=== PATIENT | male | born 1950 | race Caucasian/White ===

== ENCOUNTER 2020-05-17 20:00 | IRF | payer OTHER, SELFPAY ==
--- NOTE | 2020-05-17 20:00 | ADMGEN ---
This patient, Wu Winters, was admitted to [facility] Room 225-02. Patient/family oriented to hospital policies and general routines including ID bracelet, bed and alarms, visiting hours, pain management, procedures, bathroom and other care routines, personal items, smoking policy, room service/diet, and visiting hours. Information on how to activate the Rapid Response Team has been discussed. Patient/Family are encouraged to report perceived risks to care and to ask questions if they do not understand what they are told or what they should do.
[2020-05-17 22:00] VITALS: BP 144/74; PULSE 77; RESP 18; TEMP 36.3; O2SAT 97
[2020-05-17 22:42] VITALS: BMI 34.3
[2020-05-17 23:42] VITALS: BMI 35.2
[2020-05-18 05:23] VITALS: BP 166/74; PULSE 76; RESP 18; TEMP 36.4; O2SAT 100
[2020-05-18 08:00] VITALS: PULSE 76; RESP 18; O2SAT 100
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
[2020-05-18] MEDS: BACITRACIN OINTMENT 15 GM TUBE 1 APPLIC TOPICAL ×3 (09:48→17:38)
[2020-05-18] MEDS: CHOLECALCIFEROL 1,000 UNITS TABLET 1000 UNITS PO (09:48)
[2020-05-18] MEDS: hydroCHLOROthiazide 25 MG TABLET PO (09:48)
[2020-05-18] MEDS: amLODIPine BESYLATE 5 MG TABLET 10 MG PO (09:48)
[2020-05-18] MEDS: polyethylene glycoL 3350 17 GM POWD.PACK PO (09:49)
[2020-05-18] MEDS: SENNOSIDES 8.6 MG TABLET PO (09:50)
[2020-05-18 13:33] VITALS: BMI 35.2
[2020-05-18] MEDS: CIPROFLOXACIN 500 MG TAB PO ×2 (13:59→23:45)
[2020-05-18] MEDS: ENOXAPARIN 40 MG/0.4 ML SYRINGE SUB-Q (13:59)
[2020-05-18 14:00] VITALS: BP 139/66; PULSE 86; RESP 20; TEMP 36.9; O2SAT 96
[2020-05-18] MEDS: ACETAMINOPHEN 500 MG TABLET 1000 MG PO ×2 (14:01→17:38)
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
[2020-05-18 22:00] VITALS: BP 166/77; PULSE 77; RESP 17; TEMP 36.8; O2SAT 96
[2020-05-19 05:33] LABS: Basophils Percent Auto 0.5 % (0.2-1.2); Eosinophils Absolute Auto 0.4 K/mm3 (0-0.3); Eosinophils Percent Auto 5.6 % (0-4.4); Hematocrit 32.1 % (42.0-52.0); Hemoglobin 10.2 g/dL (14.0-18.0); Immature Granulocyte Absolute 0.06 K/mm3 (0.00-0.031); Immature Granulocyte Percent A 0.8 % (0-0.5); Lymphocytes Absolute Auto 1.88 K/mm3 (0.9-3.2); Lymphocytes Percent Auto 24.7 % (18.3-44.2); Mean Corpuscular HGB Conc 31.8 g/dl (32-36); Mean Corpuscular Hemoglobin 28.4 pg (26-34); Mean Corpuscular Volume 89.4 fl (80-100); Mean Platelet Volume 9.2 fl (7.4-10.4); Monocytes Absolute Auto 0.8 K/mm3 (0.1-0.6); Monocytes Percent Auto 10.1 % (2.6-8.5); Neutrophils Absolute Auto 4.4 K/mm3 (1.3-6.7); Neutrophils Percent Auto 58.3 % (45.5-73.1); Platelet Count Result 327 k/mm3 (150-375); Red Blood Count 3.59 M/mm3 (4.6-6.20); Red Cell Distribution Width 15.9 % (11.5-14.5); White Blood Count 7.6 K/mm3 (4.5-10.0)
[2020-05-19 05:40] LABS: Anion Gap 7 mmol/L (8-16); Blood Urea Nitrogen 22 mg/dL (9-20); Calcium 8.5 mg/dL (8.4-10.2); Carbon Dioxide 29 mmol/L (22-30); Chloride 101 mmol/L (98-107); Estimated CRCL calculation 86 ml/min; Estimated Glomerular Filt Rate > 60; Glucose 100 mg/dL (75-110); Potassium 3.6 mmol/L (3.4-5.0); Sodium 137 mmol/L (137-145)
[2020-05-19 06:00] VITALS: BP 185/91; PULSE 79; RESP 19; TEMP 37; O2SAT 96
[2020-05-19] MEDS: ACETAMINOPHEN 500 MG TABLET 1000 MG PO ×3 (09:01→17:54)
[2020-05-19] MEDS: ENOXAPARIN 40 MG/0.4 ML SYRINGE SUB-Q (09:02)
[2020-05-19] MEDS: hydroCHLOROthiazide 25 MG TABLET PO (09:02)
[2020-05-19] MEDS: CHOLECALCIFEROL 1,000 UNITS TABLET 1000 UNITS PO (09:02)
[2020-05-19] MEDS: BACITRACIN OINTMENT 15 GM TUBE 1 APPLIC TOPICAL ×3 (09:02→17:55)
[2020-05-19] MEDS: amLODIPine BESYLATE 5 MG TABLET 10 MG PO (09:02)
[2020-05-19] MEDS: SENNOSIDES 8.6 MG TABLET PO (09:02)
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
[2020-05-19] MEDS: PHARMACIST COMMUNICATION ORDER 1 EACH XX (12:46)
[2020-05-19 14:00] VITALS: BP 155/71; PULSE 82; RESP 20; TEMP 36.6; O2SAT 98
[2020-05-19 22:00] VITALS: BP 130/65; PULSE 75; RESP 18; TEMP 37.2; O2SAT 96
[2020-05-20 06:00] VITALS: BP 157/80; PULSE 74; RESP 18; TEMP 36.3; O2SAT 97
[2020-05-20] MEDS: ENOXAPARIN 40 MG/0.4 ML SYRINGE SUB-Q (08:44)
[2020-05-20] MEDS: ACETAMINOPHEN 500 MG TABLET 1000 MG PO ×3 (08:44→17:47)
[2020-05-20] MEDS: SENNOSIDES 8.6 MG TABLET PO (08:45)
[2020-05-20] MEDS: BACITRACIN OINTMENT 15 GM TUBE 1 APPLIC TOPICAL ×3 (08:45→17:47)
[2020-05-20] MEDS: hydroCHLOROthiazide 25 MG TABLET PO (08:45)
[2020-05-20] MEDS: CHOLECALCIFEROL 1,000 UNITS TABLET 1000 UNITS PO (08:45)
[2020-05-20] MEDS: amLODIPine BESYLATE 5 MG TABLET 10 MG PO (08:45)
[2020-05-20 14:00] VITALS: BP 147/78; PULSE 84; RESP 18; TEMP 36.6; O2SAT 98
[2020-05-20 20:00] VITALS: PULSE 73; RESP 16; O2SAT 99
[2020-05-20 21:12] VITALS: BP 170/72; PULSE 73; RESP 16; TEMP 36.9; O2SAT 99
[2020-05-21 06:00] VITALS: BP 133/70; PULSE 84; RESP 18; TEMP 36.4; O2SAT 94
[2020-05-21] MEDS: hydroCHLOROthiazide 25 MG TABLET PO (09:30)
[2020-05-21] MEDS: CHOLECALCIFEROL 1,000 UNITS TABLET 1000 UNITS PO (09:30)
[2020-05-21] MEDS: amLODIPine BESYLATE 5 MG TABLET 10 MG PO (09:30)
[2020-05-21] MEDS: BACITRACIN OINTMENT 15 GM TUBE 1 APPLIC TOPICAL ×3 (09:30→17:47)
[2020-05-21] MEDS: SENNOSIDES 8.6 MG TABLET PO (09:31)
[2020-05-21] MEDS: ENOXAPARIN 40 MG/0.4 ML SYRINGE SUB-Q (09:31)
[2020-05-21] MEDS: ACETAMINOPHEN 500 MG TABLET 1000 MG PO ×3 (09:34→17:47)
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
[2020-05-21 14:00] VITALS: BP 127/62; PULSE 78; RESP 20; TEMP 36.6; O2SAT 95
[2020-05-21 20:00] VITALS: PULSE 71; RESP 16; O2SAT 98
[2020-05-21 21:16] VITALS: BP 151/79; PULSE 71; RESP 16; TEMP 36.4; O2SAT 98
[2020-05-21] MEDS: CYCLOBENZAPRINE HCL 10 MG TABLET PO (22:07)
[2020-05-22 06:00] VITALS: BP 136/74; PULSE 78; RESP 18; TEMP 36.7; O2SAT 95
[2020-05-22] MEDS: amLODIPine BESYLATE 5 MG TABLET 10 MG PO (09:00)
[2020-05-22] MEDS: BACITRACIN OINTMENT 15 GM TUBE 1 APPLIC TOPICAL ×3 (09:00→17:44)
[2020-05-22] MEDS: ACETAMINOPHEN 500 MG TABLET 1000 MG PO ×3 (09:00→17:44)
[2020-05-22] MEDS: CHOLECALCIFEROL 1,000 UNITS TABLET 1000 UNITS PO (09:01)
[2020-05-22] MEDS: ENOXAPARIN 40 MG/0.4 ML SYRINGE SUB-Q (09:01)
[2020-05-22] MEDS: SENNOSIDES 8.6 MG TABLET PO (09:01)
[2020-05-22] MEDS: hydroCHLOROthiazide 25 MG TABLET PO (09:01)
--- NOTE | 2020-05-22 12:03 | WPDNEUROPN ---
Progress Note: A&P Assessment and Plan (1) Shoulder dislocation: Code(s): S43.006A - Unspecified dislocation of unspecified shoulder joint, initial encounter Status: Acute (2) Femur fracture: Code(s): S72.90XA - Unspecified fracture of unspecified femur, initial encounter for closed fracture Status: Acute Additional Plan stable Review of Systems Review of Systems: All systems reviewed & are unremarkable except as noted in HPI and below Exam Narrative: Exam Narrative: awake alert has no complaints of the pain or discomfort at times not sleeping very well but generally stable no complaints of the pain heart regular lungs clear neuro unchanged Objective Data Vital Signs Vital Signs: Vital Signs - 24 hr 05/21/20 14:00 05/21/20 20:00 05/21/20 21:16 Temperature 36.6 C 36.4 C L Pulse Rate 78 71 71 Respiratory Rate 20 16 16 Blood Pressure 127/62 151/79 H Pulse Oximetry 95 98 98 05/22/20 06:00 Temperature 36.7 C Pulse Rate 78 Respiratory Rate 18 Blood Pressure 136/74 Pulse Oximetry 95 Intake/Output Intake/Output: Intake & Output 05/19/20 05/20/20 05/21/20 05/22/20 23:59 23:59 23:59 23:59 Intake Total 1320 480 720 240 Balance 1320 480 720 240 Meds/Results Medications: Active Medications Generic Name Dose Route Start Last Admin Trade Name Freq PRN Reason Stop Dose Admin Acetaminophen 1,000 mg 05/18/20 09:00 05/22/20 09:00 Acetaminophen 500 Mg Tablet PO 1,000 mg TID JOHN Administration Amlodipine Besylate 10 mg 05/18/20 09:00 05/22/20 09:00 Amlodipine Besylate 5 Mg Tablet PO 10 mg DAILY JOHN Administration Bacitracin 1 applic 05/18/20 09:00 05/22/20 09:00 Bacitracin Ointment 15 Gm Tube TOPICAL 1 applic TID JOHN Administration Cyclobenzaprine HCl 10 mg 05/18/20 00:32 05/21/20 22:07 Cyclobenzaprine Hcl 10 Mg Tablet PO 10 mg TID PRN Administration Muscle Spasm Enoxaparin Sodium 40 mg 05/18/20 11:40 05/22/20 09:01 Enoxaparin 40 Mg/0.4 Ml Syringe SUB-Q 40 mg DAILY JOHN Administration Hydrochlorothiazide 25 mg 05/18/20 09:00 05/22/20 09:01 Hydrochlorothiazide 25 Mg Tablet PO 25 mg DAILY [facility] Administration Oxycodone HCl 10 mg 05/18/20 00:32 Oxycodone Hcl (*Crx) 5 Mg Tab Ir PO Q6H PRN Pain Rated 7-10 Polyethylene Glycol 17 gm 05/18/20 09:00 05/22/20 09:01 Polyethylene Glycol 3350 17 Gm Powd.Pack PO Not Given DAILY [facility] Senna 8.6 mg 05/18/20 09:00 05/22/20 09:01 Sennosides 8.6 Mg Tablet PO 8.6 mg DAILY [facility] Administration Vitamin D 1,000 units 05/18/20 09:00 05/22/20 09:01 Cholecalciferol 1,000 Units Tablet PO 1,000 units DAILY JOHN Administration
[2020-05-22 14:00] VITALS: BP 138/64; PULSE 79; RESP 20; TEMP 36.8; O2SAT 96
[2020-05-22 20:28] VITALS: BP 126/67; PULSE 66; RESP 18; TEMP 36.3; O2SAT 92
[2020-05-23 05:42] VITALS: BP 118/63; PULSE 67; RESP 20; TEMP 36.4; O2SAT 96
[2020-05-23] MEDS: ACETAMINOPHEN 500 MG TABLET 1000 MG PO ×3 (09:32→21:20)
[2020-05-23] MEDS: ENOXAPARIN 40 MG/0.4 ML SYRINGE SUB-Q (09:33)
[2020-05-23] MEDS: CHOLECALCIFEROL 1,000 UNITS TABLET 1000 UNITS PO (09:33)
[2020-05-23] MEDS: amLODIPine BESYLATE 5 MG TABLET 10 MG PO (09:33)
[2020-05-23] MEDS: hydroCHLOROthiazide 25 MG TABLET PO (09:33)
[2020-05-23] MEDS: BACITRACIN OINTMENT 15 GM TUBE 1 APPLIC TOPICAL ×3 (09:33→17:23)
[2020-05-23] MEDS: SENNOSIDES 8.6 MG TABLET PO (09:33)
--- NOTE | 2020-05-23 09:50 | PCPTNOTE ---
Wu Winters was evaluated for a slide board on 05/23/2020 by this physical therapist reference assistant. The slide board will resolve patient's mobility limitations and will be used for ADL's within the home. The patient can safely use the slide board. ?The slide board will resolve the patient?s mobility deficits, including toe touch weight bearing precautions on R LE and non weight bearing precautions on R UE, decreased strength, and decreased balance. Jayla Jaramillo, WAREHOUSE MANAGER 05/23/2020 09:52
--- NOTE | 2020-05-23 11:20 | WPDNEURORHBP ---
Subjective Date/time seen: 05/23/20 11:20 70 years old with dislocation of the right shoulder fracture of the right femur involved in the physical therapy has no specific complaints very pleasant very cooperative Review of Systems Review of Systems: All systems reviewed & are unremarkable except as noted in HPI and below Exam Narrative: Exam Narrative: awake alert his speech nor dysphasic no dysarthric neck is supple heart regular lungs clear abdomen is soft normal bowel sounds neuro unchanged Objective Data Vital Signs Vital Signs: Vital Signs - 24 hr 05/22/20 14:00 05/22/20 20:28 05/23/20 05:42 Temperature 36.8 C 36.3 C L 36.4 C Pulse Rate 79 66 67 Respiratory Rate 20 18 20 Blood Pressure 138/64 126/67 118/63 Pulse Oximetry 96 92 96 Intake/Output Intake/Output: Intake & Output 05/20/20 05/21/20 05/22/20 05/23/20 23:59 23:59 23:59 23:59 Intake Total 480 720 720 700 Balance 480 720 720 700 Meds/Results Medications: Active Medications Generic Name Dose Route Start Last Admin Trade Name Freq PRN Reason Stop Dose Admin Acetaminophen 1,000 mg 05/18/20 09:00 05/23/20 09:32 Acetaminophen 500 Mg Tablet PO 1,000 mg TID JOHN Administration Amlodipine Besylate 10 mg 05/18/20 09:00 05/23/20 09:33 Amlodipine Besylate 5 Mg Tablet PO 10 mg DAILY JOHN Administration Bacitracin 1 applic 05/18/20 09:00 05/23/20 09:33 Bacitracin Ointment 15 Gm Tube TOPICAL 1 applic TID JOHN Administration Cyclobenzaprine HCl 10 mg 05/18/20 00:32 05/21/20 22:07 Cyclobenzaprine Hcl 10 Mg Tablet PO 10 mg TID PRN Administration Muscle Spasm Enoxaparin Sodium 40 mg 05/18/20 11:40 05/23/20 09:33 Enoxaparin 40 Mg/0.4 Ml Syringe SUB-Q 40 mg DAILY JOHN Administration Hydrochlorothiazide 25 mg 05/18/20 09:00 05/23/20 09:33 Hydrochlorothiazide 25 Mg Tablet PO 25 mg DAILY JOHN Administration Oxycodone HCl 10 mg 05/18/20 00:32 Oxycodone Hcl (*Crx) 5 Mg Tab Ir PO Q6H PRN Pain Rated 7-10 Polyethylene Glycol 17 gm 05/18/20 09:00 05/23/20 09:34 Polyethylene Glycol 3350 17 Gm Powd.Pack PO Not Given DAILY JOHN Senna 8.6 mg 05/18/20 09:00 05/23/20 09:33 Sennosides 8.6 Mg Tablet PO 8.6 mg DAILY JOHN Administration Vitamin D 1,000 units 05/18/20 09:00 05/23/20 09:33 Cholecalciferol 1,000 Units Tablet PO 1,000 units DAILY JOHN Administration Progress Note: A&P Assessment and Plan (1) Shoulder dislocation: Code(s): S43.006A - Unspecified dislocation of unspecified shoulder joint, initial encounter Status: Acute (2) Femur fracture: Code(s): S72.90XA - Unspecified fracture of unspecified femur, initial encounter for closed fracture Status: Acute Additional Plan stable
--- NOTE | 2020-05-23 12:30 | PCPTNOTE ---
Jayla Jaramillo PTA completed an inpatient rehab wheelchair evaluation on Wu Winters on 05/23/2020. The patient is unable to safely and independently ambulate household distances due to their current impairments. Their diagnosis is Right femur fracture & right shoulder dislocation and their impairments include decreased strength, decreased endurance, decreased range of motion, decreased balance, lower extremity weakness. Wu's weight bearing status is toe touch weight-bearing on Right Lower extremity and Non weight bearing on Right Upper extremity The patient demonstrates significant functional mobility limitations that impair their ability to participate in mobility-related activities of daily living (MRADLs), including toileting, feeding, dressing, grooming, and bathing in the customary locations in the home. These limitations cannot be sufficiently resolved by the use of an appropriately fitted cane or walker. It is recommended that the patient utilize a wheelchair for functional mobility within the home in order to facilitate optimal safety, independence and participation in all MRADL's and adequately access their home environment on a regular basis. The patient's home provides adequate access between rooms, maneuvering space, and surfaces to accommodate the recommended wheelchair. The use of a wheelchair for functional mobility is strongly recommended and the patient is receptive to using the wheelchair. The use of this wheelchair will significantly improve the patient's ability to participate in MRADLS and the patient will use it on a regular basis in the home. This will facilitate optimal safety, independence, and participation. The patient has demonstrated sufficient physical and mental capabilities needed to safely propel a manual wheelchair that is provided in the home during a typical day. Recommended Wheelchair Frame: STANDARD Recommended Wheelchair Size: 18 X 18 Recommended Wheelchair Cushion: STANDARD Wheelchair Leg Recommendations: BILATERAL ELEVATING AND SWING AWAY LEG RESTS ARM REST: BILATERAL SWING AWAY ARM REST to assist with slide board transfers. - Elevating legrests are recommended because the patient has significant edema of the lower extremities that requires an elevating legrest. -Anti-tippers are recommended due to patient demonstrating increased risk for falls. They would benefit from anti-tippers with added safety and stabilization. Jayla Jaramillo PTA 05/23/2020 Evaluating Therapist Date I agree with and certify that the above recommendation is medically necessary. Referring Physician Date I agree with and certify that the above recommendation is medically necessary. Referring Physician Date
[2020-05-23 14:00] VITALS: BP 141/76; PULSE 86; RESP 20; TEMP 36.7; O2SAT 95
[2020-05-23 20:45] VITALS: PULSE 74; RESP 20; O2SAT 93
[2020-05-23 22:00] VITALS: BP 140/73; PULSE 74; RESP 20; TEMP 36.9; O2SAT 93
[2020-05-24 05:36] VITALS: BP 143/76; PULSE 79; RESP 18; TEMP 36.9; O2SAT 95
--- NOTE | 2020-05-24 09:15 | PCOTNOTE ---
Addendum entered by Liam Delcid OT 05/26/20 10:10: Patient will also benefit from use of Drop arm commode as he will be confined to one room without bathroom availability upon return home. Original Note: Mr. Winters was evaluated for a tub transfer bench and drop arm commode on 05/24/20 by this occupational therapist. The tub transfer bench and drop arm commode will resolve that patient?s self-care limitations and will be used for ADL?s within the home. The patient is unable to step over edge of tub safely due to right lower extremity weight bearing restriction of toe touch weight bearing restriction and RT UE weakness following RT shoulder dislocation and RT femur fracture ORIF. Patient requires slide board for safe transfer to TTB and is also unable to stand for completion of bathing. The drop arm commode is required due to patient unable to safely and independently complete toilet or standard commode transfer via stand pivot due to RT UE weakness and RT LE weight bearing restrictions, he requires slide board for safe transfer to commode and will require a drop arm commode. The patient can safely use the tub transfer bench and drop arm commode. The patient?s friend will participate in family training and verbalizes good understanding and awareness of safety with assisting patient with use of both. Both the tub transfer bench and drop arm commode will decrease caregiver burden and allow for safety with care of patient in his home. The tub transfer bench and drop arm commode are required due to patients? history of RT shoulder dislocation and RT femur fracture with limited weight bearing to RT lower extremity and with right sided weakness. I agree with and certify that the above recommendation is medically necessary. Referring Physician Date
[2020-05-24] MEDS: CHOLECALCIFEROL 1,000 UNITS TABLET 1000 UNITS PO (09:20)
[2020-05-24] MEDS: hydroCHLOROthiazide 25 MG TABLET PO (09:20)
[2020-05-24] MEDS: amLODIPine BESYLATE 5 MG TABLET 10 MG PO (09:21)
[2020-05-24] MEDS: SENNOSIDES 8.6 MG TABLET PO (09:21)
[2020-05-24] MEDS: ACETAMINOPHEN 500 MG TABLET 1000 MG PO ×3 (09:22→21:26)
[2020-05-24] MEDS: ENOXAPARIN 40 MG/0.4 ML SYRINGE SUB-Q (09:24)
[2020-05-24] MEDS: BACITRACIN OINTMENT 15 GM TUBE 1 APPLIC TOPICAL ×3 (09:26→17:50)
--- NOTE | 2020-05-24 11:09 | WPDNEURORHBP ---
Subjective Date/time seen: 05/24/20 11:09 discussed in the family meeting patient is making significant improvement he will not require any home health on discharge but he will need the wheelchair, case was discussed with friend also who will help him at home is also supposed to follow with [facility] this Saturday Review of Systems Review of Systems: All systems reviewed & are unremarkable except as noted in HPI and below Exam Narrative: Exam Narrative: examination reveals him to be awake alert cooperative in no obvious acute distress, his speech nor dysphasic no dysarthric no dysphonic, no rhinorrhea mucous membranes moist, heart regular with no murmur, lungs clear with no rhonchi or crepitation, abdomen is soft with no organomegaly normal bowel sounds, neurological examination essentially unchanged. Objective Data Vital Signs Vital Signs: Vital Signs - 24 hr 05/23/20 14:00 05/23/20 20:45 05/23/20 22:00 Temperature 36.7 C 36.9 C Pulse Rate 86 74 74 Respiratory Rate 20 20 20 Blood Pressure 141/76 H 140/73 Pulse Oximetry 95 93 93 05/24/20 05:36 Temperature 36.9 C Pulse Rate 79 Respiratory Rate 18 Blood Pressure 143/76 H Pulse Oximetry 95 Intake/Output Intake/Output: Intake & Output 05/21/20 05/22/20 05/23/20 05/24/20 23:59 23:59 23:59 23:59 Intake Total 052 299 4873 480 Balance 431 112 3287 480 Meds/Results Medications: Active Medications Generic Name Dose Route Start Last Admin Trade Name Freq PRN Reason Stop Dose Admin Acetaminophen 1,000 mg 05/23/20 21:00 05/24/20 09:22 Acetaminophen 500 Mg Tablet PO 1,000 mg 0900,1700,2100 JOHN Administration Amlodipine Besylate 10 mg 05/18/20 09:00 05/24/20 09:21 Amlodipine Besylate 5 Mg Tablet PO 10 mg DAILY JOHN Administration Bacitracin 1 applic 05/18/20 09:00 05/24/20 09:26 Bacitracin Ointment 15 Gm Tube TOPICAL 1 applic TID JOHN Administration Cyclobenzaprine HCl 10 mg 05/18/20 00:32 05/21/20 22:07 Cyclobenzaprine Hcl 10 Mg Tablet PO 10 mg TID PRN Administration Muscle Spasm Enoxaparin Sodium 40 mg 05/18/20 11:40 05/24/20 09:24 Enoxaparin 40 Mg/0.4 Ml Syringe SUB-Q 40 mg DAILY JOHN Administration Hydrochlorothiazide 25 mg 05/18/20 09:00 05/24/20 09:20 Hydrochlorothiazide 25 Mg Tablet PO 25 mg DAILY JOHN Administration Oxycodone HCl 10 mg 05/18/20 00:32 Oxycodone Hcl (*Crx) 5 Mg Tab Ir PO Q6H PRN Pain Rated 7-10 Polyethylene Glycol 17 gm 05/18/20 09:00 05/24/20 10:59 Polyethylene Glycol 3350 17 Gm Powd.Pack PO Not Given DAILY JOHN Senna 8.6 mg 05/18/20 09:00 05/24/20 09:21 Sennosides 8.6 Mg Tablet PO 8.6 mg DAILY JOHN Administration Vitamin D 1,000 units 05/18/20 09:00 05/24/20 09:20 Cholecalciferol 1,000 Units Tablet PO 1,000 units DAILY JOHN Administration Progress Note: A&P Assessment and Plan (1) Shoulder dislocation: Code(s): S43.006A - Unspecified dislocation of unspecified shoulder joint, initial encounter Status: Acute (2) Femur fracture: Code(s): S72.90XA - Unspecified fracture of unspecified femur, initial encounter for closed fracture Status: Acute Additional Plan Stable most likely will be discharged on 05/30 in addition will check with the orthopedics at [facility] about his follow-up
[2020-05-24 14:00] VITALS: BP 126/67; PULSE 88; RESP 16; TEMP 37; O2SAT 97
[2020-05-24 20:00] VITALS: PULSE 71; RESP 17; O2SAT 94
[2020-05-24 22:00] VITALS: BP 160/76; PULSE 71; RESP 17; TEMP 36.3; O2SAT 94
[2020-05-25 06:00] VITALS: BP 143/82; PULSE 73; RESP 16; TEMP 36.2; O2SAT 93
[2020-05-25] MEDS: ACETAMINOPHEN 500 MG TABLET 1000 MG PO ×3 (08:52→21:01)
[2020-05-25] MEDS: ENOXAPARIN 40 MG/0.4 ML SYRINGE SUB-Q (08:52)
[2020-05-25] MEDS: hydroCHLOROthiazide 25 MG TABLET PO (08:52)
[2020-05-25] MEDS: BACITRACIN OINTMENT 15 GM TUBE 1 APPLIC TOPICAL ×3 (08:52→17:01)
[2020-05-25] MEDS: amLODIPine BESYLATE 5 MG TABLET 10 MG PO (08:52)
[2020-05-25] MEDS: CHOLECALCIFEROL 1,000 UNITS TABLET 1000 UNITS PO (08:52)
--- NOTE | 2020-05-25 08:55 | PC.NURSE ---
pt refuses laxatives this morning stating we would have a big mess to clean up if he took those this morning. updated.
--- NOTE | 2020-05-25 12:59 | PCDIET ---
Nutrition Follow-Up Complete: No nutritional dx at this time. Nutrition Goal: Adequate Intake of at least 75% of meals Goal met. Patient consuming 75-100% of meals on regular diet which is appropriate. Patient reports good appetite and denies c/o or concerns. Last recorded weight is 111.5 kg. Recommend obtaining new weight. Bowel Motility: Last documented BM on 05/24/20. Labs Reviewed: Hgb (10.2), Hct (32.1), BUN (22) Meds Noted: Norvasc, Hydrochlorothiazide, Miralax (held), Senna, Vitamin D Additional Notes: Right elbow abrasion. Right leg with surgical incisions. Left leg with scabs. Will continue to monitor with same goal. Nutrition Monitoring and Evaluation: Will monitor weekly.
[2020-05-25 14:00] VITALS: BP 165/85; PULSE 84; RESP 20; TEMP 36.6; O2SAT 96
[2020-05-25 20:00] VITALS: PULSE 84; RESP 20; O2SAT 96
[2020-05-25 22:00] VITALS: BP 133/83; PULSE 84; RESP 20; TEMP 37.1; O2SAT 96
[2020-05-26 05:03] LABS: Basophils Percent Auto 0.6 % (0.2-1.2); Eosinophils Absolute Auto 0.3 K/mm3 (0-0.3); Eosinophils Percent Auto 4.4 % (0-4.4); Hematocrit 34.8 % (42.0-52.0); Hemoglobin 11.2 g/dL (14.0-18.0); Immature Granulocyte Absolute 0.02 K/mm3 (0.00-0.031); Immature Granulocyte Percent A 0.3 % (0-0.5); Lymphocytes Absolute Auto 1.89 K/mm3 (0.9-3.2); Lymphocytes Percent Auto 27.9 % (18.3-44.2); Mean Corpuscular HGB Conc 32.2 g/dl (32-36); Mean Corpuscular Hemoglobin 29.2 pg (26-34); Mean Corpuscular Volume 90.9 fl (80-100); Mean Platelet Volume 8.7 fl (7.4-10.4); Monocytes Absolute Auto 0.6 K/mm3 (0.1-0.6); Monocytes Percent Auto 8.8 % (2.6-8.5); Neutrophils Absolute Auto 3.9 K/mm3 (1.3-6.7); Platelet Count Result 436 k/mm3 (150-375); Red Blood Count 3.83 M/mm3 (4.6-6.20); Red Cell Distribution Width 16.5 % (11.5-14.5); White Blood Count 6.8 K/mm3 (4.5-10.0)
[2020-05-26 05:14] LABS: Anion Gap 8 mmol/L (8-16); Blood Urea Nitrogen 21 mg/dL (9-20); Calcium 8.6 mg/dL (8.4-10.2); Carbon Dioxide 30 mmol/L (22-30); Chloride 101 mmol/L (98-107); Estimated CRCL calculation 96 ml/min; Estimated Glomerular Filt Rate > 60; Glucose 94 mg/dL (75-110); Potassium 3.5 mmol/L (3.4-5.0); Sodium 139 mmol/L (137-145)
[2020-05-26 06:00] VITALS: BP 144/72; PULSE 78; RESP 16; TEMP 36.7; O2SAT 95
[2020-05-26] MEDS: hydroCHLOROthiazide 25 MG TABLET PO (09:23)
[2020-05-26] MEDS: CHOLECALCIFEROL 1,000 UNITS TABLET 1000 UNITS PO (09:23)
[2020-05-26] MEDS: ENOXAPARIN 40 MG/0.4 ML SYRINGE SUB-Q (09:23)
[2020-05-26] MEDS: SENNOSIDES 8.6 MG TABLET PO (09:24)
[2020-05-26] MEDS: ACETAMINOPHEN 500 MG TABLET 1000 MG PO ×3 (09:27→20:00)
[2020-05-26] MEDS: amLODIPine BESYLATE 5 MG TABLET 10 MG PO (11:48)
--- NOTE | 2020-05-26 11:51 | WPDNEURORHBP ---
Subjective Date/time seen: 05/26/20 11:51 70 years old with dislocation of the right shoulder and right femur fracture has been involved the physical therapy and occupational therapy has no specific complaints Review of Systems Review of Systems: All systems reviewed & are unremarkable except as noted in HPI and below Exam Narrative: Exam Narrative: on examination he is awake alert cooperative speech nor dysphasic no dysarthric not dysphonic heart regular lungs clear abdomen is soft neuro examination revealed normal mental status normal speech the cranial examination is normal motor examination reveals no changes reflexes intact plantars are downgoing Objective Data Vital Signs Vital Signs: Vital Signs - 24 hr 05/25/20 14:00 05/25/20 20:00 05/25/20 22:00 Temperature 36.6 C 37.1 C Pulse Rate 84 84 84 Respiratory Rate 20 20 20 Blood Pressure 165/85 H 133/83 Pulse Oximetry 96 96 96 05/26/20 06:00 Temperature 36.7 C Pulse Rate 78 Respiratory Rate 16 Blood Pressure 144/72 H Pulse Oximetry 95 Intake/Output Intake/Output: Intake & Output 05/23/20 05/24/20 05/25/20 05/26/20 23:59 23:59 23:59 23:59 Intake Total 1420 960 840 Balance 1420 960 840 Meds/Results Medications: Active Medications Generic Name Dose Route Start Last Admin Trade Name Freq PRN Reason Stop Dose Admin Acetaminophen 1,000 mg 05/23/20 21:00 05/26/20 09:27 Acetaminophen 500 Mg Tablet PO 1,000 mg 0900,1700,2100 JOHN Administration Amlodipine Besylate 10 mg 05/18/20 09:00 05/26/20 11:48 Amlodipine Besylate 5 Mg Tablet PO 10 mg DAILY JOHN Administration Bacitracin 1 applic 05/18/20 09:00 05/26/20 09:28 Bacitracin Ointment 15 Gm Tube TOPICAL Not Given TID JOHN Cyclobenzaprine HCl 10 mg 05/18/20 00:32 05/21/20 22:07 Cyclobenzaprine Hcl 10 Mg Tablet PO 10 mg TID PRN Administration Muscle Spasm Enoxaparin Sodium 40 mg 05/18/20 11:40 05/26/20 09:23 Enoxaparin 40 Mg/0.4 Ml Syringe SUB-Q 40 mg DAILY JOHN Administration Hydrochlorothiazide 25 mg 05/18/20 09:00 05/26/20 09:23 Hydrochlorothiazide 25 Mg Tablet PO 25 mg DAILY JOHN Administration Oxycodone HCl 10 mg 05/18/20 00:32 Oxycodone Hcl (*Crx) 5 Mg Tab Ir PO Q6H PRN Pain Rated 7-10 Polyethylene Glycol 17 gm 05/18/20 09:00 05/26/20 09:24 Polyethylene Glycol 3350 17 Gm Powd.Pack PO Not Given DAILY JOHN Senna 8.6 mg 05/18/20 09:00 05/26/20 09:24 Sennosides 8.6 Mg Tablet PO 8.6 mg DAILY JOHN Administration Vitamin D 1,000 units 05/18/20 09:00 05/26/20 09:23 Cholecalciferol 1,000 Units Tablet PO 1,000 units DAILY JOHN Administration Labs Labs: Laboratory Results - last 24 hr 05/26/20 05/26/20 04:47 04:47 WBC 6.8 RBC 3.83 L Hgb 11.2 L Hct 34.8 L MCV 90.9 MCH 29.2 MCHC 32.2 RDW 16.5 H Plt Count 436 H MPV 8.7 Immature Gran % (Auto) 0.3 Neut % (Auto) 58.0 Lymph % (Auto) 27.9 [place] % (Auto) 8.8 H Eos % (Auto) 4.4 Baso % (Auto) 0.6 Lymph # (Auto) 1.89 [place] # (Auto) 0.6 Eos # (Auto) 0.3 Baso # (Auto) 0.0 Abs Immat Gran (auto) 0.02 Absolute Neuts (auto) 3.9 Absolute Nucleated RBC 0.0 Nucleated RBC % 0.0 Sodium 139 Potassium 3.5 Chloride 101 Carbon Dioxide 30 Anion Gap 8 BUN 21 H Creatinine 0.80 Estim Creat Clear Calc 96 Estimated GFR > 60 Glucose 94 Calcium 8.6 Progress Note: A&P Assessment and Plan (1) Shoulder dislocation: Code(s): S43.006A - Unspecified dislocation of unspecified shoulder joint, initial encounter Status: Acute (2) Femur fracture: Code(s): S72.90XA - Unspecified fracture of unspecified femur, initial encounter for closed fracture Status: Acute Additional Plan stable continue the therapy as such
[2020-05-26 14:00] VITALS: BP 145/67; PULSE 84; RESP 20; TEMP 36.4; O2SAT 99
[2020-05-26 20:10] VITALS: PULSE 84; RESP 20; O2SAT 99
[2020-05-26 22:00] VITALS: BP 176/91; PULSE 68; RESP 18; TEMP 36.2; O2SAT 96
[2020-05-27 06:00] VITALS: BP 146/73; PULSE 81; RESP 18; TEMP 36.1; O2SAT 96
[2020-05-27] MEDS: ACETAMINOPHEN 500 MG TABLET 1000 MG PO ×3 (09:58→20:25)
[2020-05-27] MEDS: amLODIPine BESYLATE 5 MG TABLET 10 MG PO (09:58)
[2020-05-27] MEDS: CHOLECALCIFEROL 1,000 UNITS TABLET 1000 UNITS PO (09:59)
[2020-05-27] MEDS: hydroCHLOROthiazide 25 MG TABLET PO (09:59)
[2020-05-27] MEDS: ENOXAPARIN 40 MG/0.4 ML SYRINGE SUB-Q (09:59)
[2020-05-27] MEDS: SENNOSIDES 8.6 MG TABLET PO (10:00)
[2020-05-27 14:00] VITALS: BP 135/74; PULSE 83; RESP 20; TEMP 36.3; O2SAT 96
[2020-05-28 06:00] VITALS: BP 156/70; PULSE 81; RESP 20; TEMP 36.6; O2SAT 96
[2020-05-28 08:00] VITALS: PULSE 81; RESP 20; O2SAT 96
[2020-05-28] MEDS: amLODIPine BESYLATE 5 MG TABLET 10 MG PO (08:33)
[2020-05-28] MEDS: ENOXAPARIN 40 MG/0.4 ML SYRINGE SUB-Q (08:33)
[2020-05-28] MEDS: CHOLECALCIFEROL 1,000 UNITS TABLET 1000 UNITS PO (08:33)
[2020-05-28] MEDS: hydroCHLOROthiazide 25 MG TABLET PO (08:34)
[2020-05-28] MEDS: BACITRACIN OINTMENT 15 GM TUBE 1 APPLIC TOPICAL (08:34)
[2020-05-28] MEDS: ACETAMINOPHEN 500 MG TABLET 1000 MG PO ×3 (08:39→21:07)
--- NOTE | 2020-05-28 12:42 | WPDNEURORHBP ---
Subjective Date/time seen: 05/28/20 12:42 70 years old with dislocation of the right shoulder and right femur fracture has been actively involved the physical therapy and occupation therapy extremely pleasant and cooperative is really looking forward to be go home on Saturday and before he goes home he will stop [facility] to have the physical by the orthopedic physician there Exam Narrative: Exam Narrative: on examination he is awake alert very pleasant speech nor dysphasic no dysarthric nor dysphonic the cranial nerve examination is normal motor examination revealed no areas of focal motor signs flexes are sluggish but symmetrical heart regular lungs clear abdomen soft Objective Data Vital Signs Vital Signs: Vital Signs - 24 hr 05/27/20 14:00 05/28/20 06:00 Temperature 36.3 C L 36.6 C Pulse Rate 83 81 Respiratory Rate 20 20 Blood Pressure 135/74 156/70 H Pulse Oximetry 96 96 Intake/Output Intake/Output: Intake & Output 05/25/20 05/26/20 05/27/20 05/28/20 23:59 23:59 23:59 23:59 Intake Total 840 720 240 Balance 840 720 240 Meds/Results Medications: Active Medications Generic Name Dose Route Start Last Admin Trade Name Freq PRN Reason Stop Dose Admin Acetaminophen 1,000 mg 05/23/20 21:00 05/28/20 08:39 Acetaminophen 500 Mg Tablet PO 1,000 mg 0900,1700,2100 JOHN Administration Amlodipine Besylate 10 mg 05/18/20 09:00 05/28/20 08:33 Amlodipine Besylate 5 Mg Tablet PO 10 mg DAILY JOHN Administration Cyclobenzaprine HCl 10 mg 05/18/20 00:32 05/21/20 22:07 Cyclobenzaprine Hcl 10 Mg Tablet PO 10 mg TID PRN Administration Muscle Spasm Enoxaparin Sodium 40 mg 05/18/20 11:40 05/28/20 08:33 Enoxaparin 40 Mg/0.4 Ml Syringe SUB-Q 40 mg DAILY JOHN Administration Hydrochlorothiazide 25 mg 05/18/20 09:00 05/28/20 08:34 Hydrochlorothiazide 25 Mg Tablet PO 25 mg DAILY JOHN Administration Polyethylene Glycol 17 gm 05/18/20 09:00 05/28/20 08:34 Polyethylene Glycol 3350 17 Gm Powd.Pack PO Not Given DAILY JOHN Senna 8.6 mg 05/18/20 09:00 05/28/20 08:34 Sennosides 8.6 Mg Tablet PO Not Given DAILY JOHN Vitamin D 1,000 units 05/18/20 09:00 05/28/20 08:33 Cholecalciferol 1,000 Units Tablet PO 1,000 units DAILY JOHN Administration Progress Note: A&P Assessment and Plan (1) Shoulder dislocation: Code(s): S43.006A - Unspecified dislocation of unspecified shoulder joint, initial encounter Status: Acute (2) Femur fracture: Code(s): S72.90XA - Unspecified fracture of unspecified femur, initial encounter for closed fracture Status: Acute Additional Plan stable continue the treatment as such
[2020-05-28 14:00] VITALS: BP 138/69; PULSE 81; RESP 20; TEMP 35.7; O2SAT 98
[2020-05-28 20:34] VITALS: BP 150/84; PULSE 86; RESP 20; TEMP 37.1; O2SAT 92
[2020-05-29 04:53] VITALS: BP 126/70; PULSE 80; RESP 20; TEMP 36.6; O2SAT 92
[2020-05-29] MEDS: ENOXAPARIN 40 MG/0.4 ML SYRINGE SUB-Q (08:50)
[2020-05-29] MEDS: hydroCHLOROthiazide 25 MG TABLET PO (08:51)
[2020-05-29] MEDS: amLODIPine BESYLATE 5 MG TABLET 10 MG PO (08:51)
[2020-05-29] MEDS: CHOLECALCIFEROL 1,000 UNITS TABLET 1000 UNITS PO (08:51)
[2020-05-29] MEDS: ACETAMINOPHEN 500 MG TABLET 1000 MG PO ×3 (08:52→21:17)
--- NOTE | 2020-05-29 09:00 | PC.NURSE ---
pt refused senna and miralax this morning. pt states Please No. I don't think I need anymore for at least 3 weeks! updated.
[2020-05-29 14:00] VITALS: BP 129/73; PULSE 86; RESP 20; TEMP 36.6; O2SAT 98
[2020-05-29 20:00] VITALS: PULSE 76; RESP 17; O2SAT 94
[2020-05-29 22:00] VITALS: BP 150/87; PULSE 76; RESP 17; TEMP 36.8; O2SAT 94
[2020-05-30 06:00] VITALS: BP 151/88; PULSE 76; RESP 17; TEMP 36.7; O2SAT 93
[2020-05-30] MEDS: amLODIPine BESYLATE 5 MG TABLET 10 MG PO (08:19)
[2020-05-30] MEDS: CHOLECALCIFEROL 1,000 UNITS TABLET 1000 UNITS PO (08:19)
[2020-05-30] MEDS: ENOXAPARIN 40 MG/0.4 ML SYRINGE SUB-Q (08:19)
[2020-05-30] MEDS: SENNOSIDES 8.6 MG TABLET PO (08:20)
[2020-05-30] MEDS: hydroCHLOROthiazide 25 MG TABLET PO (08:20)
[2020-05-30] MEDS: ACETAMINOPHEN 500 MG TABLET 1000 MG PO (08:27)
--- NOTE | 2020-05-31 10:56 | PM.DS ---
DS: Admitting Diagnosis Admitting Diagnosis Admitting Diagnosis: Right femur fracture & right shoulder dislocation ADMISSION FUNCTION: 70 years old right-handed male admitted to the rehab floor of [facility] with primary rehab impairment category of orthopedic, of lower extremity fracture and etiological diagnosis of oblique comminuted fracture of the distal femur shaft width posterior displacement and shortening in addition to the comorbid conditions of hypertension and history of prostate cancer at the time of admission level of functions were as follows. Eating set up Oral Care substantial Toileting Hygiene substantial Shower/Bathing substantial Upper Body Dressing substantial Lower Body Dressing substantial Donning/[place] Footwear substantial Rolling Left and Right independent Sit to Lying partial assistance Lying to Sitting partial assistance Sit to Stand partial assistance Bed to Chair Transfers substantial Toilet Transfers substantial Car Transfers substantial Walking 50' with Two Turns unable Walking 150' unable Curb or Step unable 4 Steps unable 12 Steps unable Picking Up Object dependent [Wheelchair Mobility 50'] partial assistance [Wheelchair Mobility 150'] partial assistance GOALS: Eating [INDEPENDENT] Oral Care [INDEPENDENT] Toileting Hygiene [INDEPENDENT] Shower/Bathing [INDEPENDENT] Upper Body Dressing [INDEPENDENT] Lower Body Dressing [INDEPENDENT] Donning/[place] Footwear [INDEPENDENT] Rolling Left and Right [INDEPENDENT] Sit to Lying [INDEPENDENT] Lying to Sitting [INDEPENDENT] Sit to Stand [INDEPENDENT] Bed to Chair Transfers [INDEPENDENT] Toilet Transfers [INDEPENDENT] Car Transfers [INDEPENDENT] Walking 10' unable Walking 50' with Two Turns unable walking 150ft patient will be unable Curb or Step unable 4 Steps unable 12 Steps unable Picking Up Object [INDEPENDENT] [Wheelchair Mobility 50'] [INDEPENDENT] [Wheelchair Mobility 150'] [INDEPENDENT] DISCHARGE PERFORMANCE: Eating [INDEPENDENT] Oral Care [INDEPENDENT] Toileting Hygiene supervision Shower/Bathing supervision Upper Body Dressing [INDEPENDENT] Lower Body Dressing partial assistance footwear supervision Donning/[place] Footwear [INDEPENDENT] Rolling Left and Right [INDEPENDENT] Sit to Lying [INDEPENDENT] Lying to Sitting [INDEPENDENT] Sit to Stand supervision Bed to Chair Transfers [INDEPENDENT] Toilet Transfers [INDEPENDENT] Car Transfers set up Walking 10' unable Walking 50' with Two Turns unable Walking 150' unable Curb or Step unable 4 Steps unable 12 Steps unable Picking Up Object [INDEPENDENT] [Wheelchair Mobility 50'] [INDEPENDENT] [Wheelchair Mobility 150'] [INDEPENDENT] throughout the hospitalization patient was involved in the physical therapy and occupational therapy actively,he had no falls and at the time of discharge his physical exam was otherwise normal, his condition improved. he was discharged to his home with instruction for the outpatient physical therapy DS: Summary Time Spent with Patient Time attestation: Total time spent providing and/or coordinating discharge services: Discharge Plan Discharge Consulting providers: Oliver Du Discharging Clinician: Cl Jeffers Patient Disposition: Home, Self-Care Activity: may shower, no driving, follow weight bearing status and other - see discharge instructions Diet: as tolerated and regular Wound Care Instructions: other - see discharge instructions Discharge Instructions: Toe Touch weight bearing to the Right lower extremity No weight bearing to R upper extremity May apply dry dressing to abrasions to elbow and leg daily and as needed. Patient Instructions: Antibiotic Form, Pain Management in Older Adults (GEN), Blood Thinners (GEN) Stand Alone Forms: General Discharge Information Follow-up/Referrals: Gonzalo Diehl [Other] (Follow up with ENT PRN for wound care needs of right ear. Vaseline for
== END 2020-05-30 10:10 | disposition home or self-care (01) | DRG 561 ==
PROVIDERS: Admitting Provider Psychiatry & Neurology Neurology; Visit Provider Psychiatry & Neurology Neurology
DX: S72.491D Other fracture of lower end of right femur, subsequent encounter for closed fracture with routine healing (principal); S43.084D Other dislocation of right shoulder joint, subsequent encounter; S01.311D Laceration without foreign body of right ear, subsequent encounter; V23.9XXD Unspecified motorcycle rider injured in collision with car, pick-up truck or van in traffic accident, subsequent encounter; I10 Essential (primary) hypertension; Z85.46 Personal history of malignant neoplasm of prostate; Z87.891 Personal history of nicotine dependence; D64.9 Anemia, unspecified
CPT/HCPCS: 36415; 80048; 85025; 97110; 97140; 97161; 97166; 97530; 97535; 97542; A9270; J1650